=== PATIENT | male | born 1935 | race Caucasian/White ===

== ENCOUNTER 2022-10-12 10:40 | Inpatient (IN) | payer MEDICARE, BC ==
[2022-10-10 09:02] LABS: BASOPHILS % 0.8 % (0.0-1.0); EOSINOPHILS # (AUTO) 0.3 (0.0-0.4); EOSINOPHILS % 6.3 % (0.0-6.0); HEMATOCRIT 35.3 % (38.2-49.6); HEMOGLOBIN 10.6 g/dL (14.0-18.0); LYMPHOCYTES # (AUTO) 1.2 (1.0-3.2); LYMPHOCYTES % 24.5 % (18.0-39.1); MEAN CORPUSCULAR HEMOGLOBIN 30.8 pg (28-32); MEAN CORPUSCULAR VOLUME 102.6 fL (81-99); MONOCYTES # (AUTO) 0.5 (0.2-0.8); MONOCYTES % 9.4 % (4.4-11.3); NEUTROPHILS # (AUTO) 2.9 (2.1-6.9); NEUTROPHILS % 58.6 % (38.7-80.0); PLATELET COUNT 202 x10e3/uL (140-360); RED BLOOD COUNT 3.44 x10e6/uL (4.3-5.7); RED CELL DISTRIBUTION WIDTH 14.1 % (11.7-14.4)
[2022-10-10 09:24] LABS: ANION GAP 15.4 mmol/L (8-16); BLOOD UREA NITROGEN 24 mg/dL (7-26); BUN/CREATININE RATIO 22 (6-25); CALCIUM 9.2 mg/dL (8.4-10.2); CARBON DIOXIDE 24 mmol/L (22-29); CHLORIDE 106 mmol/L (98-107); CREATININE, SERUM 1.08 mg/dL (0.72-1.25); GLUCOSE 106 mg/dL (74-118); POTASSIUM 4.4 mmol/L (3.5-5.1); SODIUM 141 mmol/L (136-145)
[~2022-10-12 10:40] MED LIST: CARVEDILOL12.5 MG PO; FINASTERIDE5 MG PO; FLOMAX0.4 MG PO; TRAZODONE HCL50 MG PO
[2022-10-12] MEDS ORDERED: SODIUM CHLORIDE 0.9% 1000ML 1,000 ML ONE (11:04)
[2022-10-12] MEDS ORDERED: GENTAMICIN 80MG/NS 100 ML 200 ML IV ONE (11:04)
[2022-10-12] MEDS ORDERED: LEVOFLOXACIN 500MG/D5W 100ML 100 ML IV ONE (11:05)
[2022-10-12] MEDS ORDERED: IOPAMIDOL 610MG/1ML 300 MG/ML VIAL IV ONE (12:28)
[2022-10-12] MEDS ORDERED: SEVOFLURANE INHAL SOLN 250 ML PEN BTL ONE (14:14)
[2022-10-12] MEDS ORDERED: GLYCOPYRROLATE INJ 0.2 MG/ML VIAL ONE (14:14)
[2022-10-12] MEDS ORDERED: FUROSEMIDE INJ 10 MG/ML 4 ML VIAL ONE (14:14)
[2022-10-12] MEDS ORDERED: LIDOCAINE HCL 2% LOCAL INJ 5 ML SDV VIAL INJ ONE (14:14)
[2022-10-12] MEDS ORDERED: DEXAMETHASONE SOD PHOS INJ 4 MG/ML SDV ONE (14:14)
[2022-10-12] MEDS ORDERED: LABETALOL HCL 5 MG/ML 20ML VIAL ONE (14:14)
[2022-10-12] MEDS ORDERED: PROPOFOL IV EMULSION 10 MG/ML 20 ML VIAL ONE (14:14)
[2022-10-12] MEDS ORDERED: ONDANSETRON HCL INJ 2MG/ML 2ML 2 MG/ML VIAL ONE (14:14)
[2022-10-12] MEDS ORDERED: POVIDONE IODINE 0.05% 0.05 % ML PO ONE (14:14)
[2022-10-12] MEDS ORDERED: METHYLENE BLUE 1% INJ 10 ML VIAL INJ ONE (14:48)
[2022-10-12] MEDS ORDERED: FENTANYL CITRATE/PF 100MCG/2 ML INJ ONE (14:53)
[2022-10-12] MEDS ORDERED: ACETAMINOPHEN/CODEINE 300MG - 30MG TAB PO PRN (15:45)
[2022-10-12] MEDS ORDERED: PHENAZOPYRIDINE HCL 100 MG TAB PO PRN (15:45)
[2022-10-12] MEDS ORDERED: ONDANSETRON HCL INJ 2MG/ML 2ML 2 MG/ML VIAL IV PRN (15:45)
[2022-10-12 16:04] LABS: BASOPHILS % 0.5 % (0.0-1.0); EOSINOPHILS # (AUTO) 0.2 (0.0-0.4); EOSINOPHILS % 3.3 % (0.0-6.0); HEMATOCRIT 35.2 % (38.2-49.6); HEMOGLOBIN 10.2 g/dL (14.0-18.0); LYMPHOCYTES # (AUTO) 1.3 (1.0-3.2); LYMPHOCYTES % 22.2 % (18.0-39.1); MEAN CORPUSCULAR HEMOGLOBIN 30.6 pg (28-32); MEAN CORPUSCULAR VOLUME 105.7 fL (81-99); MONOCYTES # (AUTO) 0.1 (0.2-0.8); MONOCYTES % 2.4 % (4.4-11.3); NEUTROPHILS # (AUTO) 4.2 (2.1-6.9); NEUTROPHILS % 71.4 % (38.7-80.0); PLATELET COUNT 207 x10e3/uL (140-360); RED BLOOD COUNT 3.33 x10e6/uL (4.3-5.7); RED CELL DISTRIBUTION WIDTH 14.2 % (11.7-14.4)
[2022-10-12 16:22] LABS: ANION GAP 15.5 mmol/L (8-16); CALCIUM 8.4 mg/dL (8.4-10.2); CREATININE, SERUM 0.91 mg/dL (0.72-1.25); POTASSIUM 4.5 mmol/L (3.5-5.1)
[2022-10-12 16:49] VITALS: BP 161/70
[2022-10-12] MEDS: DOCUSATE SODIUM 100 MG CAP PO SCH (17:39)
[2022-10-12] MEDS: SODIUM CHLORIDE 0.9% 1000ML 1,000 ML IV SCH (17:42)
[2022-10-12] MEDS ORDERED: ACETAMINOPHEN 1000 MG/100 ML IV PRN (18:00)
[2022-10-12] MEDS: CARVEDILOL 12.5 MG TAB PO SCH (22:42)
[2022-10-13] VITALS (9 sets, daily range): BP systolic 121–160; BP diastolic 51–82
[2022-10-13] MEDS: SODIUM CHLORIDE 0.9% 1000ML 1,000 ML IV SCH ×2 (06:06→20:59)
[2022-10-13 07:15] LABS: BASOPHILS # (AUTO) 0.1 (0.0-0.1); BASOPHILS % 0.6 % (0.0-1.0); EOSINOPHILS # (AUTO) 0.2 (0.0-0.4); EOSINOPHILS % 1.4 % (0.0-6.0); HEMATOCRIT 34.1 % (38.2-49.6); HEMOGLOBIN 10.6 g/dL (14.0-18.0); LYMPHOCYTES # (AUTO) 0.8 (1.0-3.2); LYMPHOCYTES % 6.9 % (18.0-39.1); MEAN CORPUSCULAR HEMOGLOBIN 31.7 pg (28-32); MEAN CORPUSCULAR HGB CONC 31.1 g/dL (31-35); MEAN CORPUSCULAR VOLUME 102.1 fL (81-99); MONOCYTES # (AUTO) 0.5 (0.2-0.8); MONOCYTES % 4.7 % (4.4-11.3); NEUTROPHILS # (AUTO) 9.4 (2.1-6.9); PLATELET COUNT 97 x10e3/uL (140-360); RED BLOOD COUNT 3.34 x10e6/uL (4.3-5.7); RED CELL DISTRIBUTION WIDTH 14.5 % (11.7-14.4)
[2022-10-13 07:45] LABS: ANION GAP 17.1 mmol/L (8-16); CALCIUM 7.8 mg/dL (8.4-10.2); CREATININE, SERUM 0.96 mg/dL (0.72-1.25); POTASSIUM 5.1 mmol/L (3.5-5.1)
[2022-10-13] MEDS: DOCUSATE SODIUM 100 MG CAP PO SCH ×2 (09:48→16:26)
[2022-10-13] MEDS: CARVEDILOL 12.5 MG TAB PO SCH (09:49)
[2022-10-13] MEDS: DIPHENHYDRAMINE HCL 25 MG CAP PO PRN (20:57)
[2022-10-13] MEDS ORDERED: MAGNESIUM/ALUMINUM/SIMETHICONE 30 ML UDC PO ONE (22:30)
[2022-10-14] VITALS: BP 148/55
[2022-10-14 04:00] VITALS: BP 180/74
[2022-10-14 05:39] LABS: BASOPHILS % 0.5 % (0.0-1.0); EOSINOPHILS # (AUTO) 0.5 (0.0-0.4); EOSINOPHILS % 5.7 % (0.0-6.0); HEMATOCRIT 30.8 % (38.2-49.6); HEMOGLOBIN 10.1 g/dL (14.0-18.0); LYMPHOCYTES # (AUTO) 1.2 (1.0-3.2); LYMPHOCYTES % 13.4 % (18.0-39.1); MEAN CORPUSCULAR HEMOGLOBIN 31.4 pg (28-32); MEAN CORPUSCULAR HGB CONC 32.8 g/dL (31-35); MEAN CORPUSCULAR VOLUME 95.7 fL (81-99); MONOCYTES # (AUTO) 0.5 (0.2-0.8); MONOCYTES % 5.5 % (4.4-11.3); NEUTROPHILS # (AUTO) 6.6 (2.1-6.9); NEUTROPHILS % 74.4 % (38.7-80.0); PLATELET COUNT 221 x10e3/uL (140-360); RED BLOOD COUNT 3.22 x10e6/uL (4.3-5.7); RED CELL DISTRIBUTION WIDTH 14.5 % (11.7-14.4)
[2022-10-14] MEDS: HYDRALAZINE HCL 20 MG/ML VIAL IV PRN (05:51)
[2022-10-14 05:57] LABS: ANION GAP 13.8 mmol/L (8-16); CALCIUM 8.7 mg/dL (8.4-10.2); CREATININE, SERUM 0.93 mg/dL (0.72-1.25); POTASSIUM 3.8 mmol/L (3.5-5.1)
[2022-10-14 08:34] VITALS: BP 155/70
[2022-10-14] MEDS: DOCUSATE SODIUM 100 MG CAP PO SCH ×2 (09:00→16:49)
[2022-10-14] MEDS: CARVEDILOL 12.5 MG TAB PO SCH (09:02)
[2022-10-14] MEDS: SODIUM CHLORIDE 0.9% 1000ML 1,000 ML IV SCH (14:29)
[2022-10-14 16:28] VITALS: BP 168/72
[2022-10-14] MEDS: FAMOTIDINE 20 MG TAB PO SCH (16:51)
[2022-10-14 20:00] VITALS: BP 189/69
[2022-10-14] MEDS: DIPHENHYDRAMINE HCL 25 MG CAP PO PRN (20:52)
[2022-10-14] MEDS: MELATONIN 5 MG TABLET PO SCH (23:29)
[2022-10-15] VITALS (7 sets, daily range): BP systolic 161–192; BP diastolic 68–98
[2022-10-15] MEDS: SODIUM CHLORIDE 0.9% 1000ML 1,000 ML IV SCH ×2 (01:32→06:07)
[2022-10-15 05:07] LABS: BASOPHILS % 0.6 % (0.0-1.0); EOSINOPHILS # (AUTO) 0.5 (0.0-0.4); EOSINOPHILS % 6.6 % (0.0-6.0); HEMATOCRIT 31.4 % (38.2-49.6); HEMOGLOBIN 9.6 g/dL (14.0-18.0); LYMPHOCYTES # (AUTO) 1.2 (1.0-3.2); LYMPHOCYTES % 17.6 % (18.0-39.1); MEAN CORPUSCULAR HEMOGLOBIN 31.1 pg (28-32); MEAN CORPUSCULAR HGB CONC 30.6 g/dL (31-35); MEAN CORPUSCULAR VOLUME 101.6 fL (81-99); MONOCYTES # (AUTO) 0.6 (0.2-0.8); MONOCYTES % 8.9 % (4.4-11.3); NEUTROPHILS # (AUTO) 4.6 (2.1-6.9); NEUTROPHILS % 65.9 % (38.7-80.0); PLATELET COUNT 211 x10e3/uL (140-360); RED BLOOD COUNT 3.09 x10e6/uL (4.3-5.7); RED CELL DISTRIBUTION WIDTH 13.8 % (11.7-14.4)
[2022-10-15 05:38] LABS: ANION GAP 10.8 mmol/L (8-16); CALCIUM 8.2 mg/dL (8.4-10.2); CREATININE, SERUM 0.73 mg/dL (0.72-1.25); POTASSIUM 3.8 mmol/L (3.5-5.1)
[2022-10-15] MEDS: HYDRALAZINE HCL 20 MG/ML VIAL IV PRN ×4 (06:25→20:30)
[2022-10-15] MEDS: DOCUSATE SODIUM 100 MG CAP PO SCH ×2 (07:56→16:10)
[2022-10-15] MEDS: FAMOTIDINE 20 MG TAB PO SCH ×2 (07:58→16:26)
[2022-10-15] MEDS: CARVEDILOL 12.5 MG TAB PO SCH (07:58)
[2022-10-15] MEDS ORDERED: ONDANSETRON HCL 4 MG ORAL DISINTEGRATING TAB PO PRN (14:15)
[2022-10-15] MEDS: MELATONIN 5 MG TABLET PO SCH (20:26)
[2022-10-16] VITALS: BP 151/72
[2022-10-16 04:44] VITALS: BP 165/72
[2022-10-16 05:00] LABS: BASOPHILS % 0.5 % (0.0-1.0); EOSINOPHILS # (AUTO) 0.4 (0.0-0.4); EOSINOPHILS % 4.7 % (0.0-6.0); HEMATOCRIT 31.5 % (38.2-49.6); LYMPHOCYTES # (AUTO) 0.9 (1.0-3.2); LYMPHOCYTES % 11.2 % (18.0-39.1); MEAN CORPUSCULAR HEMOGLOBIN 30.8 pg (28-32); MEAN CORPUSCULAR HGB CONC 31.7 g/dL (31-35); MEAN CORPUSCULAR VOLUME 96.9 fL (81-99); MONOCYTES # (AUTO) 0.5 (0.2-0.8); MONOCYTES % 6.3 % (4.4-11.3); NEUTROPHILS # (AUTO) 6.3 (2.1-6.9); NEUTROPHILS % 76.9 % (38.7-80.0); PLATELET COUNT 212 x10e3/uL (140-360); RED BLOOD COUNT 3.25 x10e6/uL (4.3-5.7); RED CELL DISTRIBUTION WIDTH 13.2 % (11.7-14.4)
[2022-10-16 05:20] LABS: ANION GAP 12.6 mmol/L (8-16); CALCIUM 8.4 mg/dL (8.4-10.2); CREATININE, SERUM 0.7 mg/dL (0.72-1.25); POTASSIUM 3.6 mmol/L (3.5-5.1)
[2022-10-16] MEDS: SODIUM CHLORIDE 0.9% 1000ML 1,000 ML IV SCH ×2 (05:58→13:05)
[2022-10-16 08:00] VITALS: BP 187/77
[2022-10-16 08:06] VITALS: BP 193/86
[2022-10-16] MEDS: FAMOTIDINE 20 MG TAB PO SCH (08:24)
[2022-10-16] MEDS: DOCUSATE SODIUM 100 MG CAP PO SCH (10:01)
[2022-10-16] MEDS: CARVEDILOL 12.5 MG TAB PO SCH (10:02)
[2022-10-16] MEDS: HYDRALAZINE HCL 20 MG/ML VIAL IV PRN (10:02)
[2022-10-16] MEDS ORDERED: CIPRO250 MG PO (12:32)
[2022-10-16 12:49] VITALS: BP 152/71
== END 2022-10-16 13:30 | disposition home or self-care (01) | DRG 713 ==
LOC: OR 10:40 → PACU V 15:46 → MED/SURG2 16:30 → MED/SURG 20:25
PROVIDERS: ADMIT Internal Medicine; ATTEND Internal Medicine
PROC: 0TCB8ZZ Extirpation of Matter from Bladder, Via Natural or Artificial Opening Endoscopic (ICD-10-PCS; 2022-10-12)
PROC: BT141ZZ Fluoroscopy of Kidneys, Ureters and Bladder using Low Osmolar Contrast (ICD-10-PCS; 2022-10-12)
PROC: 0V508ZZ Destruction of Prostate, Via Natural or Artificial Opening Endoscopic (ICD-10-PCS; principal; 2022-10-12 12:35)
PROC: 0V508ZZ Destruction of Prostate, Via Natural or Artificial Opening Endoscopic (ICD-10-PCS; 2022-10-12 12:35)
PROC: 0T788ZZ Dilation of Bilateral Ureters, Via Natural or Artificial Opening Endoscopic (ICD-10-PCS; 2022-10-12 12:35)
DX: N40.1 Benign prostatic hyperplasia with lower urinary tract symptoms (principal); N13.8 Other obstructive and reflux uropathy; N39.0 Urinary tract infection, site not specified; R33.8 Other retention of urine; R39.11 Hesitancy of micturition; R39.14 Feeling of incomplete bladder emptying; R35.1 Nocturia; N21.0 Calculus in bladder; K21.9 Gastro-esophageal reflux disease without esophagitis; Z20.822 Contact with and (suspected) exposure to COVID-19; R31.0 Gross hematuria
CPT/HCPCS: 0223U; 36415; 71046; 74420; 80048; 83735; 85025; 88300; 88305; 93005; 94799; 99252; C1758; J0360; J1100; J1580; J1940; J1956; J2001; J2185; J2405; J3010; J7030